=== PATIENT | female | born 1985 | race Caucasian/White ===

== ENCOUNTER 2019-04-10 15:53 | Emergency (ER) | payer MEDICAID ==
[~2019-04-10] VITALS: Ht 157.5 cm; Wt 84.8 kg
[2019-04-10] MEDS ORDERED: ACETAMINOPHEN 160 MG/5 ML UDC ONE (15:56)
[2019-04-10 16:12] VITALS: BP 128/72
[2019-04-10 16:27] LABS: APPEARANCE,URINE CLOUDY (CLEAR); BILIRUBIN,URINE NEGATIVE (NEGATIVE); BLOOD, URINE 3+ (NEGATIVE); COLOR,URINE RED (YELLOW); LEUKOCYTE ESTERASE ,URINE 2+ (NEGATIVE); NITRITE, URINE POSITIVE (NEGATIVE); UGLUCOSE 1+ (NEGATIVE)
[2019-04-10 16:28] LABS: BASOPHILS # (AUTO) 0.1 K/uL (0.00-0.22); BASOPHILS % (AUTO) 0.6 % (0.0-2.0); EOSINOPHILS # (AUTO) 0.2 K/uL (0-0.4); HEMATOCRIT 41.2 % (36-48); HEMOGLOBIN 13.6 g/dL (12.0-16.0); LYMPHOCYTES # (AUTO) 3.6 K/uL (2.5-16.5); LYMPHOCYTES % (AUTO) 32.6 % (20.5-51.1); MEAN CORPUSCULAR HEMOGLOBIN 32 pg (27-31); MEAN CORPUSCULAR HGB CONC 33 g/dL (33-37); MONOCYTES # (AUTO) 0.7 K/uL (0.8-1.0); MONOCYTES % (AUTO) 5.9 % (1.7-9.3); NEUTROPHILS # (AUTO) 6.6 K/uL (1.8-7.7); NEUTROPHILS % (AUTO) 58.9 % (42.2-75.2); PLATELET COUNT (AUTO) 332 K/uL (140-450); RED BLOOD CELL COUNT(AUTO) 4.33 MIL/uL (4.20-5.40); RED CELL DISTRIBUTION WIDTH 13.3 % (11.6-13.7); WHITE BLOOD COUNT (AUTO) 11.1 K/uL (4.8-10.8)
--- NOTE | 2019-04-10 16:30 | NUR ---
U/S TECH AT BEDSIDE
[2019-04-10 16:40] LABS: ANION GAP 17.6 (8-16); CARBON DIOXIDE 23.4 mmol/L (21-32); CREATININE 0.7 mg/dL (0.6-1.3)
[2019-04-10 16:40] LABS: RBC,URINE TOO NUMEROUS TO COUN /HPF (0-5); WBC,URINE >25 (MANY) /HPF (0-5)
--- NOTE | 2019-04-10 16:52 | NUR ---
33 YO FEMALE CO HEAVY VAGINAL BLEEDING WITH CLOTS SINCE YESTERDAY. PT IS 9 WEEKS . SOME BLEEDING OCCURED ON 03/04 AND PCP ORDERED BED REST AT THAT TIME. PT HAS NO PAIN. NO MED HX AND NO RX MEDS AT HOME.
[2019-04-10 17:41] VITALS: BP 134/72
== END 2019-04-10 17:42 | disposition home or self-care (01) ==
LOC: MED 15:53
DX: O20.0 Threatened abortion (principal); O23.41 Unspecified infection of urinary tract in pregnancy, first trimester; E11.9 Type 2 diabetes mellitus without complications; Z3A.09 9 weeks gestation of pregnancy; Z90.49 Acquired absence of other specified parts of digestive tract
CPT/HCPCS: 36415; 76801; 80048; 81001; 84702; 85025; 86900; 86901; 87086; 99284; Q0092